=== PATIENT | male | born 1985 | race Caucasian/White ===

== ENCOUNTER 2017-12-10 19:33 | Emergency (ER) | payer OTHER ==
[~2017-12-10] VITALS: Ht 182.9 cm; Wt 88.5 kg
== END 2017-12-10 23:17 | disposition home or self-care (01) ==
LOC: ER 19:33
DX: S92.351A Displaced fracture of fifth metatarsal bone, right foot, initial encounter for closed fracture (principal); W22.8XXA Striking against or struck by other objects, initial encounter; Y93.89 Activity, other specified; Y92.098 Other place in other non-institutional residence as the place of occurrence of the external cause; Y99.8 Other external cause status

== ENCOUNTER 2019-05-18 15:40 | Emergency (ER) | payer OTHER ==
[~2019-05-18] VITALS: Ht 182.9 cm; Wt 99.3 kg
== END 2019-05-18 20:47 | disposition home or self-care (01) ==
LOC: ER 15:40
DX: J09.X2 Influenza due to identified novel influenza A virus with other respiratory manifestations (principal); B34.9 Viral infection, unspecified

== ENCOUNTER 2021-06-05 17:40 | Emergency (ER) | payer OTHER ==
[~2021-06-05] VITALS: Ht 182.9 cm; Wt 99.3 kg
== END 2021-06-05 18:32 | disposition home or self-care (01) ==
LOC: ER 17:40
DX: M54.2 Cervicalgia (principal); Z88.6 Allergy status to analgesic agent; V49.9XXA Car occupant (driver) (passenger) injured in unspecified traffic accident, initial encounter; Y93.9 Activity, unspecified; Y92.9 Unspecified place or not applicable; Y99.9 Unspecified external cause status

== ENCOUNTER 2021-06-18 15:38 | Emergency (ER) | payer OTHER ==
[~2021-06-18] VITALS: Ht 182.9 cm; Wt 97.5 kg
== END 2021-06-18 18:30 | disposition home or self-care (01) ==
LOC: ER 15:38
DX: S00.83XA Contusion of other part of head, initial encounter (principal); X58.XXXA Exposure to other specified factors, initial encounter; Y92.89 Other specified places as the place of occurrence of the external cause; Z88.6 Allergy status to analgesic agent

== ENCOUNTER 2022-07-21 13:12 | Emergency (ER) | payer OTHER ==
[~2022-07-21] VITALS: Ht 180.3 cm; Wt 99.8 kg
== END 2022-07-21 14:54 | disposition home or self-care (01) ==
LOC: ER 13:12
DX: M79.605 Pain in left leg (principal); Z88.6 Allergy status to analgesic agent

== ENCOUNTER 2023-02-06 19:17 | Emergency (ER) | payer OTHER ==
[~2023-02-06] VITALS: Ht 182.9 cm; Wt 94.3 kg
== END 2023-02-06 21:02 | disposition home or self-care (01) ==
LOC: ER 19:17
DX: S61.211A Laceration without foreign body of left index finger without damage to nail, initial encounter (principal); W45.8XXA Other foreign body or object entering through skin, initial encounter; Y93.89 Activity, other specified; Y92.010 Kitchen of single-family (private) house as the place of occurrence of the external cause; Y99.9 Unspecified external cause status; Z88.6 Allergy status to analgesic agent

== ENCOUNTER 2024-09-18 18:59 | Emergency (ER) | payer OTHER ==
[~2024-09-18] VITALS: Ht 182.9 cm; Wt 102.5 kg
[2024-09-18] MEDS ORDERED: FAMOTIDINE/PF 20 MG/2 ML VIAL IV PUSH STA (19:44)
[2024-09-18] MEDS ORDERED: FAMOTIDINE/PF 20 MG/2 ML VIAL ONE (19:58)
[2024-09-18 20:20] LABS: BASO % 0.7 % (0.1-1.2); EOS # 0.17 (0.04-0.54); EOS % 2.4 % (0.7-7.0); HEMATOCRIT 44.8 % (40.1-51.0); HEMOGLOBIN 15.2 g/dL (13.7-17.5); LYMPH # 1.59 (1.18-3.74); MEAN CORPUSCULAR HEMOGLOBIN 29.1 pg (25.6-32.2); MONO # 0.68 (0.24-0.82); MONO % 9.4 % (4.7-12.5); NEUT # 4.67 (1.56-6.13); NEUT % 64.7 % (34.0-71.1); PLATELET COUNT 191 K/uL (163-369); RED BLOOD COUNT 5.23 M/uL (4.63-6.08); RED CELL DISTRIBUTION WIDTH 13.5 % (11.6-14.4)
[2024-09-18 20:43] LABS: GFR 83.19; POTASSIUM 3.74 mEq/L (3.5-5.1)
== END 2024-09-18 21:01 | disposition home or self-care (01) ==
LOC: ER 19:30
PROVIDERS: General Practice
DX: R00.2 Palpitations (principal); F10.920 Alcohol use, unspecified with intoxication, uncomplicated; Z88.6 Allergy status to analgesic agent